=== PATIENT | female | born 1965 | race Asian ===

== ENCOUNTER 2017-11-28 08:05 | Emergency (ER) | payer OTHER ==
--- NOTE | 2017-11-28 09:08 | ED Physician Chart ---
ED Chief Complaint/HPI - Patient Information Date Seen:: 11/28/17 Time Seen:: 08:55 Chief Complaint:: urinary frequency and hematuria History of Present Illness:: [place] [address] this morning. No fever. She has lower abdominal pain and low back pain. Allergies:: Allergies Allergy/AdvReac Type Severity Reaction Status Date / Time No Known Allergies Allergy Verified 11/28/17 08:25 Vitals:: Vital Signs - 8 hr 11/28/17 11/28/17 08:18 08:49 Temp 98 F 98 F HR 83 89 RR 16 16 BP 147/93 143/93 O2 Sat % 100 100 Historian:: Patient Review:: Nurse's Note Reviewed ED Review of Systems - Review of Systems General/Constitutional: No fever, No chills Skin: No skin lesions Head: No headache Eyes: No loss of vision ENT: No earache Neck: No neck pain, No swelling Cardio Vascular: No chest pain, No palpitations Pulmonary: No SOB GI: No nausea, No vomiting, No diarrhea G/U: Frequency, Hematuria Musculoskeletal: No bone or joint pain, No back pain, No muscle pain Endocrine: No polyuria, No polydipsia Psychiatric: Prior psych history Hematopoietic: No bruising Allergic/Immuno: No urticaria Neurological: No syncope, No focal symptoms, No weakness Family Medical History - Family Member Mother History Unknown: Yes Ethnicity: Non- Living Status: Unknown ED Labs/Radiology/EKG Results - Lab Results Results: Laboratory Results - last 24 hr 11/28/17 08:25 Urine Source [place] Urine Color RED Urine Clarity HAZY Urine pH 7.0 Ur Specific [place] 1.010 Urine Protein >=300 Urine Glucose (UA) 100 H Urine Ketones 15 H Urine Blood LARGE H Urine Nitrate POSITIVE H Urine Bilirubin MODERATE H Urine Urobilinogen 4.0 H Ur Leukocyte Esterase LARGE H Urine RBC >100 H Urine WBC 25-50 H Ur Epithelial Cells MODERATE Urine Bacteria MANY H ED Septic Shock - . Is Septic Shock (SBP<90, OR Lactate>4 mmol\L) present?: No - <6hrs of presentation: Vital Signs: Vital Signs - 8 hr 11/28/17 11/28/17 08:18 08:49 Temp 98 F 98 F HR 83 89 RR 16 16 BP 147/93 143/93 O2 Sat % 100 100 ED Reassessment (Disposition) - Reassessment Reassessment Condition:: Unchanged - Diagnosis Diagnosis:: Urinary tract infection - Aftercare/Follow up Instructions Aftercare/Follow-Up Instructions:: Refer to Discharge Instructions Medication Prescribed:: Cipro 500 mg twice a day for 1 week and Pyridium 100 mg #12 to take one 3 times a day. - Patient Disposition Discharge/Transfer:: Home Condition at Disposition:: Stable, Unchanged
[2017-11-28 09:44] LABS: URINE MICROSCOPIC INDICATED? YES; URINE SOURCE MIDSTREAM
[2017-11-28 09:45] LABS: URINE BILIRUBIN MODERATE (NEGATIVE); URINE BLOOD LARGE (NEGATIVE); URINE GLUCOSE (UA) 100 mg/dL (NEGATIVE); URINE KETONE 15 mg/dL (NEGATIVE); URINE LEUKOCYTE ESTERASE LARGE (NEGATIVE); URINE NITRATE POSITIVE (NEGATIVE); URINE PROTEIN >=300 mg/dL (NEGATIVE)
[2017-11-28 09:52] LABS: URINE CLARITY HAZY (CLEAR); URINE COLOR RED
[2017-11-28 09:54] LABS: URINE RBC >100 /hpf (0-5)
[2017-11-28 09:55] LABS: URINE BACTERIA MANY /hpf (NONE SEEN); URINE EPITHELIAL CELLS MODERATE /lpf (FEW); URINE WBC 25-50 /hpf (0-5)
== END 2017-11-28 10:15 | disposition home or self-care (01) ==
LOC: ER 08:05
DX: N39.0 Urinary tract infection, site not specified (principal)
CPT/HCPCS: 81001-TC; 87086-90; Z7502; Z7610